=== PATIENT | female | born 1955 | race Two or more races ===

== ENCOUNTER 2025-08-08 17:45 | Inpatient (IN) | payer OTHER, MEDICAID ==
[~2025-08-08] VITALS: Ht 167.6 cm; Wt 81.0 kg
--- NOTE | 2025-08-08 18:04 | ECG ---
[facility] Test Date: 2025-08-08 Test Time: 17:58:12 Pat Name: LAVERN Riddlepartment: Room: 0248T Gender: F Photographic Artist: DAPHNE : 1955 Requested By: EMERGENCY EMERGENCY Order Number: [id number] Reading MD: Rubens Zarco Measurements Intervals [place] Rate: 93 P: 72 ND: 109 QRS: 58 QRSD: 125 T: -72 QT: 379 QTc: 472 Interpretive Statements Sinus rhythm Ventricular bigeminy Short ND interval Probable LVH with secondary repol abnrm ST depression, consider ischemia, diffuse lds Electronically Signed On 08-13-2025 19:10:51 PST by Rubens Zarco Please click the below link to view image of tracing.
--- NOTE | 2025-08-08 18:43 | ED.PDOC ---
History of Present Illness HPI Comments 70 y/o F presents with daughter for c/c of syncope. Significant history for arrhythmia, HLD, and HTN. Per daughter, patient was out shopping when she, suddenly, passed out and fell forward. Patient came to after a few minutes and, now, feels normals. She comments on feeling lightheaded prior to passing out and never having a history of similar events in the past. Denial of any further acute symptoms. Chief Complaint: Syncope Time Seen by MD: 18:30 Reviewed Notes: Nurses Notes, Medications, Allergies Allergies: Coded Allergies: NO KNOWN ALLERGIES (Unverified , 08/08/25) Information Source: Patient Mode of Arrival: Ambulatory Severity: Moderate Timing: Hours Duration: Minutes Prehospital treatment: None Past Medical History PAST MEDICAL HISTORY: High Lipids, HTN Past Medical History (Other): arrhythmia [employer] History: Denies all [employer] Hx Family History Family History: Unknown Social History Smoker: Non-Smoker Alcohol: Denies ETOH Use Drugs: Denies Drug Use Lives In: Assisted Care All Other Systems: Reviewed and Negative (Comprehensive review of systems are negative unless stated in HPI) Physical Exam General Appearance: No Apparent Distress, Normal HEENT: Normal ENT Inspection, Pharynx Normal, TMs Normal Neck: Full Range of Motion, Non-Tender, Normal, Normal Inspection Respiratory: Chest Non-Tender, Lungs Clear, No Accessory Muscle Use, No Respiratory Distress, Normal Breath Sounds Cardiovascular: Irregular, No Edema, No JVD, No Murmur, No Gallop, Normal Peripheral Pulses Breast Exam: Deferred Gastrointestinal: No Organomegaly, Non Tender, No Pulsatile Mass, Normal Bowel Sounds, Soft Genitalia: Deferred Pelvic: Deferred Rectal: Deferred Extremities: No calf tenderness, Normal capillary refill, Normal inspection, Normal range of motion, Non-tender, No pedal edema Musculoskeletal : Apperance: Normal Neurologic: Alert, applications architect II-XII nml as Tested, No Motor Deficits, Normal Affect, Normal Mood, No Sensory Deficits Cerebellar Function: Normal Reflexes: Normal Skin: Dry, Normal Color, Warm Lymphatic: No Adenopathy Was a procedure done? Was a procedure done?: No EKG EKG : Pulse Rate (adult): 93 [place]: Normal Cardiac Rhythm: NSR Block: None Hypertrophy: None ST: Normal Differential Dx Considerations may include: arrhythmia, hypotension, dehydration, electrolyte imbalance, intracranial hemorrhaging, aneurysm, CVA vs TIA, among others X-Ray, Labs, Meds, VS Vital Signs Date Time Temp Pulse Resp B/P (MAP) Pulse Ox O2 Delivery O2 Flow Rate FiO2 08/08/25 18:46 101 08/08/25 18:43 93 08/08/25 17:58 93 08/08/25 17:47 97.7 46 18 180/90 96 97.7 Lab Test 08/08/25 18:23 Range/Units White Blood Count 7.2 4.4-10.8 10^3/uL Red Blood Count 5.01 4.0-5.20 10^6/uL Hemoglobin 14.4 12.2-16.2 g/dL Hematocrit 42.5 36.0-46.0 % Mean Corpuscular Volume 84.8 80.0-100.0 fL Mean Corpuscular Hemoglobin 28.8 28.0-32.0 pg Mean Corpuscular Hemoglobin Concent 33.9 32.0-36.0 g/dL Red Cell Distribution Width 14.2 11.8-14.3 % Platelet Count 251 140-450 10^3/uL Mean Platelet Volume 9.0 6.9-10.8 fL Neutrophils (%) (Auto) 76.8 37.0-80.0 % Lymphocytes (%) (Auto) 14.9 10.0-50.0 % Monocytes (%) (Auto) 5.9 0.0-12.0 % Eosinophils (%) (Auto) 1.6 0.0-7.0 % Basophils (%) (Auto) 0.8 0.0-2.0 % Neutrophils # (Auto) 5.5 1.6-8.6 10 ^3/uL Lymphocytes # (Auto) 1.1 0.4-5.4 10 ^3/uL Monocytes # (Auto) 0.4 0-1.3 10 ^3/uL Eosinophils # (Auto) 0.1 0-0.8 10 ^3/uL Basophils # (Auto) 0.1 0-0.2 10 ^3/uL Nucleated Red Blood Cells 0.1 % Sodium Level 144 136-145 mmol/L Potassium Level 3.8 3.5-5.1 mmol/L Chloride Level 106 98-107 mmol/L Carbon Dioxide Level 26 20-31 mmol/L Anion Gap 12 5-15 Blood Urea Nitrogen 22 9-23 mg/dL Creatinine 0.79 0.550-1.02 mg/dL Glomerular Filtration Rate Calc 79 >90 mL/min BUN/Creatinine Ratio 27.8 H 10.0-20.0 Serum Glucose 105 74-106 mg/dL Lactic Acid Level 0.9 0.4-2.0 mmol/L Calcium Level 9.3 8.7-10.4 mg/dL Total Bilirubin 0.4 0.2-1.0 mg/dL Aspartate Amino Transferase (AST) 18 13-40 U/L Alanine Aminotransferase (ALT) 10 7-40 U/L Alkaline Phosphatase 111 46-116 U/L Troponin I High Sensitivity 11 </=34 ng/L B-Type Natriuretic Peptide 288.58 0-100 pg/mL Total Protein 7.5 5.7-8.2 g/dL Albumin 4.4 3.2-4.8 g/dL Time of 1ST Reevaluation: 19:00 Reevaluation 1ST: Unchanged Patient Education/Counseling: Diagnosis, Treatment Family Education/Counseling: Diagnosis, Treatment SEPSIS Sepsis Screen Date sepsis recognized/suspect: Aug 08, 2025 Time Sepsis recognized/suspect: 1748 Recent Procedure: No On Antibiotic Therapy: No Respiratory Rate >20: No Heart Rate >90: No Temp<36 C (96.8 F) or >38.3 C: No SBP <90 or MAP <65 mmHG: No New Acute Mental Status Change: No Is the patient on CPAP, BIPAP,: No Physician Orders Urinalysis (08/08/25 18:05) Chest Portable (08/08/25 18:05) Electrocardigram (08/08/25 18:05) Head Without Contrast (08/08/25 18:05) Blood Culture (08/08/25 18:05) Troponin-I Hs (08/08/25 19:05) Troponin-I Hs (08/08/25 21:05) Electrocardigram (08/08/25 19:05) Electrocardigram (08/08/25 21:05) Vital Signs Date Time Temp Pulse Resp B/P (MAP) Pulse Ox O2 Delivery O2 Flow Rate FiO2 08/08/25 18:46 101 08/08/25 18:43 93 08/08/25 17:58 93 08/08/25 17:47 97.7 46 18 180/90 96 97.7 Laboratory Tests Test 08/08/25 18:23 Lactic Acid Level 0.9 mmol/L (0.4-2.0) White Blood Count 7.2 10^3/uL (4.4-10.8) Departure 1 Departure Time of Disposition: 19:37 (Patient presented with syncope today and should be admitted. Data: 1. I ordered and reviewed the result of at least 3 labs including a CBC, BMP, and troponin. 2. I independently interpreted the following tests: EKG which shows a sinus arrhythmia and a chest x-ray which shows benign chest and a CT head which shows benign brain.Risk:This patient has a high risk of morbidity due to further diagnostic testing or treatment and may suffer from an acute cardiac, neurologic, or infectious disorder. Rationale: Patient should be admitted to the hospital for further management.) Impression: Primary Impression: Syncope and collapse Disposition: ADMITTED INPATIENT [facility] Condition: Guarded Critical Care Note Critical Care Time?: Yes Critical care comment: Syncope and collapse Authorized and Performed by: Alma Amos MD Total critical care time: Approximately 49 minutes Due to a high probability of clinically significant, life threatening deterioration, the patient required my highest level of preparedness to intervene emergently and I personally spent this critical care time directly and personally managing the patient. This critical care time included obtaining a history; examining the patient; pulse oximetry; ordering and review of studies; arranging urgent treatment with development of a management plan; evaluation of patient's response to treatment; frequent reassessment; and, discussions with other providers. This critical care time was performed to assess and manage the high probability of imminent, life-threatening deterioration that could result in multi-organ failure. It was exclusive of separately billable procedures and treating other patients and teaching time. Please see my other sections and the rest of the note for further information on patient assessment and treatment. Stability Stability form required: No Heart Score Heart Score: Heart Score Response (Comments) Value History N/A 0 EKG N/A 0 Age N/A 0 Risk Factors N/A 0 Troponin N/A 0 Total 0 I personally scribed for ALMA AMOS MD ([email or web address]) on 08/08/25 at 18:42. Electronically submitted by Aniket Dickinson ([email or web address]). ALMA AMOS MD Aug 08, 2025 18:42
[2025-08-08 18:50] LABS: Hematocrit 42.5 % (36.0-46.0); Hemoglobin 14.4 g/dL (12.2-16.2); Mean Corpuscular Hemoglobin 28.8 pg (28.0-32.0); Mean Corpuscular Volume 84.8 fL (80.0-100.0); Nucleated Red Blood Cells % 0.1 %
--- NOTE | 2025-08-08 19:07 | DVH ---
CHEST RADIOGRAPH Indication: syncope Technique: Single frontal view of the chest was obtained Comparison: None FINDINGS: Lines and Tubes: None Lungs: No focal consolidation. Pleura: No effusion. No pneumothorax. Cardiomediastinal contours: Unremarkable Bones: No acute osseous abnormality. IMPRESSION: 1. No acute cardiopulmonary disease.
[2025-08-08 19:08] LABS: Alanine Aminotransferase 10 U/L (7-40); Albumin 4.4 g/dL (3.2-4.8); Alkaline Phosphatase 111 U/L (46-116); Anion Gap 12 (5-15); BUN/Creatinine Ratio 27.8 (10.0-20.0); Bilirubin, Total 0.4 mg/dL (0.2-1.0); Blood Urea Nitrogen 22 mg/dL (9-23); Calcium 9.3 mg/dL (8.7-10.4); Carbon Dioxide 26 mmol/L (20-31); Chloride 106 mmol/L (98-107); Glucose 105 mg/dL (74-106); Potassium 3.8 mmol/L (3.5-5.1); Sodium 144 mmol/L (136-145); Total Protein 7.5 g/dL (5.7-8.2)
--- NOTE | 2025-08-08 19:11 | DVH ---
EXAM: CT HEAD WITHOUT CONTRAST INDICATION: syncope TECHNIQUE: CT of the head without intravenous contrast. Radiation Dose : 1. Head: CT Dose: CTDI volume is 51.22 mGy. Dose-length product is 932.81 mGy*cm The dose indicators for CT are the volume Computed Tomography (CT) Dose Index (CTDIvol) and the Dose Length Product (DLP), and are measured in units of mGy and mGy-cm, respectively. These indicators are not patient dose, but values generated from the CT scanner acquisition factors. The report includes radiation exposure data for exposures received during this examination. COMPARISON: None FINDINGS: Motion artifact degrades fine detail. No acute territorial infarct, intracranial hemorrhage, or mass effect. There are global involutional changes with compensatory prominence of the ventricles and sulci. Patchy periventricular and subcortical white matter hypoattenuation is nonspecific but may be related to small vessel ischemic disease. The orbits are normal. Trace fluid in the inferior right mastoid air cells. The paranasal sinuses and mastoid air cells are clear. The osseous structures are unremarkable. IMPRESSION: 1. No acute territorial infarct, intracranial hemorrhage, or mass effect. 2. Age-related involutional changes. Chronic microvascular changes. 3. If clinical symptoms persist, MRI may be beneficial in further evaluation. Radiation optimization: All CT scans at this facility use at least one of these dose optimization techniques: automated exposure control mA and/or kV adjustment per patient size (includes targeted exams where dose is matched to clinical indication) or iterative reconstruction.
[2025-08-09] VITALS (8 sets, daily range): BP systolic 142–198; BP diastolic 57–90; PULSE 48–91; RESP 17–18; TEMP 97.6–98.6; O2SAT 94–99
--- NOTE | 2025-08-09 00:07 | DVHHP2 ---
History of Present Illness Reason for Visit: Syncope and collapse History of Present Illness The patient is a 70-year-old female with past medical history of cardiac arrhythmia, hypertension, and hyperlipidemia who presented to [facility] ED for evaluation of syncopal episode. As reported by daughter, patient was out shopping when she suddenly passed out on the counter falling forward. Patient regained her consciousness after a few minutes, but unable to recall event. Patient reports feeling lightheaded prior to passing out and never having history of similar events in the past. Patient was seen and evaluated in the ED, laboratory data shows WBC 7.2, platelets 251, sodium 144, potassium 3.8, BUN 22, creatinine 0.79, GFR 79, glucose 105, calcium 9.3, troponin 11, blood pressure 152/98, pulse 78, temperature 97.6 F, O2 saturation 95% on room air. Head CT showed no acute territorial infarct, intracranial hemorrhage, or mass effect. Please see medication orders section in the computer. On my assessment, patient denied chest pain, no headache, dizziness, diaphoresis, shortness of breaths, no diarrhea, nausea, vomiting, fever, no chills. Patient was admitted for further evaluation and medical management. Past Medical History High Lipids, HTN, Arrhythmia Past Surgical History Denies all surgeries Family History Reviewed, noncontributory to the management of this case. Past Social History The patient lives at home, denies smoking, alcohol or illicit drugs abuse. Review of Systems Constitutional: Yes: Weakness; No: Fever, Chills, Sweats, Malaise, Other Eyes: No: Pain, Vision change, Conjunctivae inflammation, Eyelid inflammation, Other, Redness ENT: No: Ear pain, Ear discharge, Nose pain, Nose discharge, Nose congestion, Mouth pain, Mouth swelling, Throat pain, Throat swelling, Other Respiratory: No: Cough, Dry, Shortness of breath, SOB with excertion, Wheezing, Hemoptysis, Pleuritic Pain, Sputum, Wheezing, Other Cardiovascular: Other (Syncope); No: Chest Pain, Palpitations, Orthopnea, Paroxysmal Noc. Dyspnea, Edema, Lt Headedness Gastrointestinal: No: Nausea, Vomiting, Abdominal Pain, Diarrhea, Constipation, Melena, Hematochezia, Other Genitourinary: No Dysuria, No Frequency, No Incontinence, No Hematuria, No Retention, No Other Musculoskeletal: No: other, neck pain, shoulder pain, arm pain, back pain, hand pain, leg pain, foot pain Skin: No: Rash, Lesions, Jaundice, Bruising, Other Neurological: No: Weakness, Numbness, Incoordination, Change in speech, Confusion, Seizures, Other Allergies: Coded Allergies: NO KNOWN ALLERGIES (Unverified , 08/08/25) Exam Vital Signs Vital Signs Date Time Temp Pulse Resp B/P (MAP) Pulse Ox O2 Delivery O2 Flow Rate FiO2 08/08/25 22:30 97.6 79 16 153/98 (116) 95 97.6 General Appearance: Alert, Oriented X3, Cooperative, No acute distress HEENT: Atraumatic, PERRLA, EOMI, Mucous membr. moist/pink Respiratory: Clear to auscultation, Normal air movement Cardiovascular: Regular rate, Normal S1, Normal S2, No murmurs Abdominal: Normal bowel sounds, Soft, No tenderness, No hepatospenomegaly, No masses Extremities: No clubbing, No cyanosis, No edema, Normal pulses, No tenderness/swelling Skin: No rashes, No significant lesion Neuro: Normal speech, Normal tone, Sensation intact, Cranial nerves 3-12 NL, Reflexes 2+, Other (Generalized weakness) Psych/Mental Status: Mental status NL, Mood NL Labs/Xrays Labs Test 08/08/25 21:18 08/08/25 18:23 Range/Units Troponin I High Sensitivity 11 </=34 ng/L White Blood Count 7.2 4.4-10.8 10^3/uL Red Blood Count 5.01 4.0-5.20 10^6/uL Hemoglobin 14.4 12.2-16.2 g/dL Hematocrit 42.5 36.0-46.0 % Mean Corpuscular Volume 84.8 80.0-100.0 fL Mean Corpuscular Hemoglobin 28.8 28.0-32.0 pg Mean Corpuscular Hemoglobin Concent 33.9 32.0-36.0 g/dL Red Cell Distribution Width 14.2 11.8-14.3 % Platelet Count 251 140-450 10^3/uL Mean Platelet Volume 9.0 6.9-10.8 fL Neutrophils (%) (Auto) 76.8 37.0-80.0 % Lymphocytes (%) (Auto) 14.9 10.0-50.0 % Monocytes (%) (Auto) 5.9 0.0-12.0 % Eosinophils (%) (Auto) 1.6 0.0-7.0 % Basophils (%) (Auto) 0.8 0.0-2.0 % Neutrophils # (Auto) 5.5 1.6-8.6 10 ^3/uL Lymphocytes # (Auto) 1.1 0.4-5.4 10 ^3/uL Monocytes # (Auto) 0.4 0-1.3 10 ^3/uL Eosinophils # (Auto) 0.1 0-0.8 10 ^3/uL Basophils # (Auto) 0.1 0-0.2 10 ^3/uL Nucleated Red Blood Cells 0.1 % Sodium Level 144 136-145 mmol/L Potassium Level 3.8 3.5-5.1 mmol/L Chloride Level 106 98-107 mmol/L Carbon Dioxide Level 26 20-31 mmol/L Anion Gap 12 5-15 Blood Urea Nitrogen 22 9-23 mg/dL Creatinine 0.79 0.550-1.02 mg/dL Glomerular Filtration Rate Calc 79 >90 mL/min BUN/Creatinine Ratio 27.8 H 10.0-20.0 Serum Glucose 105 74-106 mg/dL Lactic Acid Level 0.9 0.4-2.0 mmol/L Calcium Level 9.3 8.7-10.4 mg/dL Total Bilirubin 0.4 0.2-1.0 mg/dL Aspartate Amino Transferase (AST) 18 13-40 U/L Alanine Aminotransferase (ALT) 10 7-40 U/L Alkaline Phosphatase 111 46-116 U/L B-Type Natriuretic Peptide 288.58 0-100 pg/mL Total Protein 7.5 5.7-8.2 g/dL Albumin 4.4 3.2-4.8 g/dL PATIENT: LAVERN SINGHACCT: [id number] UNIT: [id number] : 1955 LOC: ER ROOM / BED: / AGE / SEX: 70 / F ADM STATUS: REG ER SERVICE 0233 ORDERING PHYSICIAN: ALMA ROYAL MD PROCEDURE(s): HWOCT - HEAD WITHOUT CONTRAST REASON: syncope ORDER NUMBER(s): [id number], ACCESSION NUMBER(s): [id number] EXAM: CT HEAD WITHOUT CONTRAST INDICATION: syncope TECHNIQUE: CT of the head without intravenous contrast. Radiation Dose: 1. Head: CT Dose: CTDI volume is 51.22 mGy. Dose-length product is 932.81 mGy*cm The dose indicators for CT are the volume Computed Tomography (CT) Dose Index (CTDIvol) and the Dose Length Product (DLP), and are measured in units of mGy and mGy-cm, respectively. These indicators are not patient dose, but values generated from the CT scanner acquisition factors. The report includes radiation exposure data for exposures received during this examination. COMPARISON: None FINDINGS: Motion artifact degrades fine detail. No acute territorial infarct, intracranial hemorrhage, or mass effect. There are global involutional changes with compensatory prominence of the ventricles and sulci. Patchy periventricular and subcortical white matter hypoattenuation is nonspecific but may be related to small vessel ischemic disease. The orbits are normal. Trace fluid in the inferior right mastoid air cells. The paranasal sinuses and mastoid air cells are clear. The osseous structures are unremarkable. IMPRESSION: 1. No acute territorial infarct, intracranial hemorrhage, or mass effect. 2. Age-related involutional changes. Chronic microvascular changes. 3. If clinical symptoms persist, MRI may be beneficial in further evaluation. ORDERING PHYSICIAN: ALMA ROYAL MD PROCEDURE(s): CXRP - CHEST PORTABLE REASON: syncope ORDER NUMBER(s): [id number], ACCESSION NUMBER(s): [id number] CHEST RADIOGRAPH Indication: syncope Technique: Single frontal view of the chest was obtained Comparison: None FINDINGS: Lines and Tubes: None Lungs: No focal consolidation. Pleura: No effusion. No pneumothorax. Cardiomediastinal contours: Unremarkable Bones: No acute osseous abnormality. IMPRESSION: 1. No acute cardiopulmonary disease. SEPSIS Sepsis Screen Date sepsis recognized/suspect: Aug 08, 2025 Time Sepsis recognized/suspect: 1748 Recent Procedure: No On Antibiotic Therapy: No Respiratory Rate >20: No Heart Rate >90: No Temp<36 C (96.8 F) or >38.3 C: No SBP <90 or MAP <65 mmHG: No New Acute Mental Status Change: No Is the patient on CPAP, BIPAP,: No Physician Orders Urinalysis (08/08/25 18:05) Chest Portable (08/08/25 18:05) Electrocardigram (08/08/25 18:05) Head Without Contrast (08/08/25 18:05) Blood Culture (08/08/25 18:05) Electrocardigram (08/08/25 19:05) Electrocardigram (08/08/25 21:05) Complete Blood Count (08/09/25 04:00) Comprehensive Metabolic Panel (08/09/25 04:00) Aspirin Chewable Tablet (08/09/25 10:00) Atorvastatin (Lipitor) (08/09/25 22:00) Losartan Tablet (Cozaar Tablet) (08/09/25 10:00) Amlodipine Tablet (Norvasc Tablet) (08/09/25 10:00) Admit (08/09/25 00:02) Allergies (08/09/25 00:02) Code Status (08/09/25 00:02) 0.9% Ns 1000 Ml (08/09/25 00:15) Oxygen Per Hour (08/09/25 00:02) Hydrocodone-Acet 5/325mg Tab ([place] 5/32 (08/09/25 00:15) Ondansetron Hcl (Zofran) (08/09/25 00:15) Docusate Sodium Capsule (Colace Capsule) (08/09/25 00:15) Fall Risk Precautions In Place QSHIFT (08/09/25 00:02) Complete Blood Count (08/10/25 04:00) Comprehensive Metabolic Panel (08/10/25 04:00) Cardiac Diet-2gna,Lofat,Lochol (08/09/25 Breakfast) Condition: Serious (08/09/25 00:02) Acetaminophen Tablet (Tylenol Tablet) (08/09/25 00:15) Maintain Bed Rest (08/09/25 00:02) Sequential Compression Device (08/09/25 ) Nitroglycerin Sublingual (Ntrostat Subli (08/09/25 00:15) Morphine Sulfate Injection (08/09/25 00:15) Stat Ekg For Chest Pain (08/09/25 00:02) Notify Md Of Changes From Base (08/09/25 00:02) Lockstitch Zipper Setter For 24 Hours (08/09/25 00:02) Emergency Dysrhythmia Protocol (08/09/25 00:02) Rhythm Strips Once Every Shift (08/09/25 00:02) Oxygen By Nasal Cannula (08/09/25 00:02) Vital Signs Date Time Temp Pulse Resp B/P (MAP) Pulse Ox O2 Delivery O2 Flow Rate FiO2 08/08/25 22:30 97.6 79 16 153/98 (116) 95 97.6 08/08/25 20:52 92 08/08/25 18:46 101 08/08/25 18:43 93 08/08/25 17:58 93 08/08/25 17:47 97.7 46 18 180/90 96 97.7 Laboratory Tests Test 08/08/25 18:23 Lactic Acid Level 0.9 mmol/L (0.4-2.0) White Blood Count 7.2 10^3/uL (4.4-10.8) Assessment/Plan Assessment/Plan Syncope and collapse Generalized weakness Plan 1. Admit to telemetry unit 2. Breathing treatment 3. Pain control management 4. Management of fluids and electrolytes 5. Consultation for hospitalist 6. Diagnostic tests chest x-ray 7. DVT prophylaxis-on SCDs 8. Repeat labs CBC, CMP in a.m. 9. Continue with current medical management 10. Treatment plan discussed with patient/daughter and RN. Patient/daughter verbalized understanding. Plan discussed with: Patient, Other (RN) My Orders Orders - PATRICIA DARLING DNP Procedure Category Date Status Time Complete Blood Count LAB 08/09/25 Transmitted 04:00 Comprehensive LAB 08/09/25 Transmitted Metabolic Panel 04:00 Aspirin Chewable PHA 08/09/25 Transmitted Tablet 10:00 Atorvastatin (Lipitor) PHA 08/09/25 Transmitted 22:00 Losartan Tablet PHA 08/09/25 Transmitted (Cozaar Tablet) 10:00 Amlodipine Tablet PHA 08/09/25 Transmitted (Norvasc Tablet) 10:00 Admit ADMIT 08/09/25 Transmitted 00:02 Allergies DAVID 08/09/25 Transmitted 00:02 Code Status CODE 08/09/25 Transmitted 00:02 0.9% Ns 1000 Ml PHA 08/09/25 Transmitted 00:15 Oxygen Per Hour RT 08/09/25 Transmitted 00:02 Hydrocodone-Acet PHA 08/09/25 Transmitted 5/325mg Tab ([place] 00:15 Ondansetron Hcl PHA 08/09/25 Transmitted (Zofran) 00:15 Docusate Sodium PHA 08/09/25 Transmitted Capsule (Colace 00:15 Fall Risk Precautions [facility] 08/09/[address] 00:02 Complete Blood Count LAB 08/10/25 Verified 04:00 Comprehensive LAB 08/10/25 Verified Metabolic Panel 04:00 Cardiac DIET 08/09/25 Transmitted Diet-2gna,Lofat,Lochol Breakfast Condition: Serious [facility] 08/09/25 Verified 00:02 Acetaminophen Tablet [facility] 08/09/25 Verified (Tylenol Tablet) 00:15 Maintain Bed Rest [facility] 08/09/25 Verified 00:02 Sequential [facility] 08/09/25 Verified Compression Device Nitroglycerin [facility] 08/09/25 Verified Sublingual (Ntrostat 00:15 Morphine Sulfate [facility] 08/09/25 Verified Injection 00:15 Stat Ekg For Chest [facility] 08/09/25 Verified Pain 00:02 Notify Md Of Changes [facility] 08/09/25 Verified From Base 00:02 Lockstitch Zipper Setter For [facility] 08/09/25 Verified 24 Hours 00:02 Emergency Dysrhythmia [facility] 08/09/25 Verified Protocol 00:02 Rhythm Strips Once [facility] 08/09/25 Verified Every Shift 00:02 Oxygen By Nasal RT 08/09/25 Verified Cannula 00:02 Problem List: (1) Syncope and collapse (2) Generalized weakness Date of Service: Aug 09, 2025 Billing Provider: PATRICIA DARLING DNP Common Visit Codes: [id number] INP/OBS CARE (HIGH) PATRICIA DARLING DNP Aug 09, 2025 00:07
[2025-08-09] MEDS ORDERED: DOCUSATE SOD 100 MG CAP PO PRN (00:15)
[2025-08-09] MEDS ORDERED: NITROGLYCERIN 0.4 MG SL TAB SL PRN (00:15)
[2025-08-09] MEDS ORDERED: ACETAMINOPHEN 325 MG TAB PO PRN (00:15)
[2025-08-09] MEDS ORDERED: ONDANSETRON HCL 4 MG/2 ML VIAL IV PRN (00:15)
[2025-08-09] MEDS ORDERED: MORPHINE SULFATE INJ 2 MG/ml SYRG IV PRN (00:15)
[2025-08-09] MEDS ORDERED: HYDROcodone-ACET 5/325MG TAB PO PRN (00:15)
[2025-08-09] MEDS: SODIUM CHLORIDE 0.9% 1,000 ML IV SCH (01:40)
[2025-08-09 02:39] LABS: Hematocrit 41.6 % (36.0-46.0); Hemoglobin 13.8 g/dL (12.2-16.2); Mean Corpuscular Hemoglobin 28.2 pg (28.0-32.0); Mean Corpuscular Volume 85.3 fL (80.0-100.0); Nucleated Red Blood Cells % 0.1 %
[2025-08-09 02:55] LABS: Albumin 4.0 g/dL (3.2-4.8); Alkaline Phosphatase 100 U/L (46-116); Anion Gap 10 (5-15); BUN/Creatinine Ratio 29.3 (10.0-20.0); Bilirubin, Total 0.6 mg/dL (0.2-1.0); Blood Urea Nitrogen 17 mg/dL (9-23); Calcium 8.9 mg/dL (8.7-10.4); Carbon Dioxide 24 mmol/L (20-31); Glucose 102 mg/dL (74-106); Potassium 3.7 mmol/L (3.5-5.1); Sodium 142 mmol/L (136-145); Total Protein 6.9 g/dL (5.7-8.2)
[2025-08-09 02:56] LABS: Alanine Aminotransferase 9 U/L (7-40); Chloride 108 mmol/L (98-107)
[2025-08-09] MEDS ORDERED: ASPI-543 PO (05:00)
[2025-08-09] MEDS: LOSARTAN POTASSIUM 50 MG TAB PO SCH (10:45)
[2025-08-09] MEDS: ENOXAPARIN SOD 40 MG/0.4 ML SYRINGE SC SCH (10:46)
--- NOTE | 2025-08-09 12:40 | DVHSR ---
APPROVED REPORT EXAM: Two-dimensional and M-mode echocardiogram with Doppler and color Doppler. Blood Pressure: 160/71 mmHg INDICATION Syncope RISK FACTORS Height: 66, Weight: 176 DIMENSIONS LVDd 4.9 (3.8-5.7cm) LA (2D) 5.2 (1.9-4.0cm) Aortic Root 3.6 (2.0-3.7cm) LVDs 3.7 (2.5-4.0cm) LA (MM) (1.9-4.0cm) Aortic Cusp Exc 1.4 (1.5-2.0cm) EF (%) 50.0 (55-70%) Rt. Atrium 4.4 (1.9-4.0cm) Asc. Aorta cm Mitral Valve Mitral Mitral Stenosis A wave m/s MV Peak GR. 155mmHg E/A ratio 0.0 2D MVA cm2 Aortic Valve Aortic Valve Aortic Stenosis V1 0.82m/s AO Mean GR. 2mmHg V2 1.20m/s AO Peak GR. 6mmHg LVOT Diameter 2.1 (1.8-2.4cm) Doppler GABRIEL 2.37cm2 AI P 1/2 Time 417.41ms Pulmonic Valve V2 1.08m/s Tricuspid Valve TR Velocity 4.08m/s RVSP 83mmHg Other Information Technically limited study due to patients rhythm. Conclusion 1)Borderline low normal left ventricle systolic function with estimated ejection fraction of 50-55%. 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
[2025-08-09 13:17] LABS: Urine Protein, UAD 1+ (Negative)
[2025-08-09 14:16] LABS: INR 1.15 (0.9-1.15); Partial Thromboplastin Time 31.1 SEC (24.5-34.5); Prothrombin Time 12.0 sec (9.3-11.8)
--- NOTE | 2025-08-09 15:16 | DVHPNRES ---
Progress Note Date Seen: Aug 09, 2025 Resident Creating Document: BUBBA DEVINE RESDIENT Medical Necessity Reason Pt with a Central, PICC or Fol: No Subjective Review of Systems This is a 70-year-old lady with a past medical history of hypertension, dyslipidemia and unknown arrhythmia brought into the hospital due to syncope. Per patient, prior to losing consciousness she felt dizzy, had lost consciousness for couple of minutes, had no confusion upon waking up. She denies chest pain, shortness of breaths, sweating or palpitation. Home meds: Aspirin, patient was previously prescribed medicine for high blood pressure and dyslipidemia but the patient has stopped taking. She is taking her pills at home. On 08/09, the patient seen and examined at the bedside. Patient is feeling better and does not have any active complaint. Objective vital signs Vital Sign Date Time Temp Pulse Resp B/P (MAP) Pulse Ox O2 Delivery O2 Flow Rate FiO2 08/09/25 13:00 98.1 48 18 198/90 (126) 97 98.1 175/83 (113) 191/86 (121) 08/09/25 04:44 Room Air* 0 21 Total Intake and Output 08/08/25 08/08/25 08/09/25 15:00 23:00 07:00 Intake Total 0 ml Balance 0 ml medications Current Medications Medications Dose Ordered Sig/Patrick Route Start Time Stop Time Status Last Admin Dose Admin Aspirin 81 mg DAILY PO 08/09/25 10:00 08/09/25 10:44 81 MG Atorvastatin Calcium 20 mg HS PO 08/09/25 22:00 Losartan Potassium 50 mg DAILY PO 08/09/25 10:00 08/09/25 10:45 50 MG Amlodipine Besylate 5 mg DAILY PO 08/09/25 10:00 08/09/25 10:45 5 MG Sodium Chloride 1,000 ml @ 60 mls/hr [id number] IV 08/09/25 00:15 08/09/25 01:40 60 MLS/HR Acetaminophen/ Hydrocodone Bitart 1 tab Q4HP PRN PO 08/09/25 00:15 Ondansetron HCl 4 mg Q4HP PRN IV 08/09/25 00:15 Acetaminophen 650 mg Q6HP PRN PO 08/09/25 00:15 Enoxaparin Sodium 40 mg DAILY SC 08/09/25 10:00 08/09/25 10:46 40 MG Examination General Appearance: Alert, Oriented X3, Cooperative, No acute distress HEENT: Atraumatic, PERRLA, EOMI, Mucous membrane moist/pink Respiratory: Clear to auscultation, Normal air movement Cardiovascular: Regular rate, Normal S1, Normal S2, No murmurs, no chest wall tenderness Abdominal: Normal bowel sounds, Soft, No tenderness, No hepatospenomegaly, No masses Extremities: No clubbing, No cyanosis, No edema, Normal pulses, No tenderness/swelling Skin: No rashes, No breakdown, No significant lesion Neuro: Normal gait, Normal speech, Strength at 5/5 X4 ext, Normal tone, Sensation intact, Cranial nerves 3-12 NL, Reflexes 2+ Psych/Mental Status: Mental status NL, Mood NL laboratory and microbiology Laboratory Tests 08/09/25 02:26 Test 08/09/25 02:26 Range/Units Serum Glucose 102 74-106 mg/dL Labs and/or images reviewed: Labs reviewed by me, Image(s) reviewed by me Problem List/Assessment/Plan Problem List/Assessment/Plan Syncope, likely cardiogenic History of a dysrhythmia Hypertensive urgency Dyslipidemia Possible pulmonary hypertension * EKGs shows sinus bigeminal PVCs * Head CT scan showed no intracranial abnormalities * Echocardiogram shows LVEF 50-55%, septal wall dyssynchrony, and RVSP 65-70% suggestive of possible pulmonary hypertension Plan/recommendation: * Aspirin, atorvastatin, amlodipine and losartan * Consulted cardiology * Check echocardiogram * Consulted neurology DIET: Cardiolite DVT PROPHYLAXIS: Lovenox CODE STATUS: Goal of care discussed for more than 18 minutes, full code DISPOSITION: Telemetry Patient's status and plan discussed with the patient. Case discussed with Dr. Montes De Oca. Plan discussed with: Patient, Other My Orders My Orders Orders - BUBBA DEVINE RESDIENT Procedure Category Date Status Time Orthostatic Vital ORDERS 08/09/25 Transmitted Signs 08:13 Enoxaparin Sodium PHA 08/09/25 In Process (Lovenox) 10:00 * Cardiology Consult CONS 08/09/25 Transmitted 10:41 Echo 2d Mode Cardiac US 08/09/25 Resulted DOP 10:41 * Neurology Consult CONS 08/09/25 Transmitted 13:18 Visit Coding STANDARD RES Billing Provider: GEMA MONTES DE OCA DO Date of Service if different f: Aug 09, 2025 Common Visit Codes: [id number] INP/OBS CARE(HIGH) BUBBA DEVINE Aug 09, 2025 15:16 GEMA MONTES DE OCA DO Aug 10, 2025 20:51
--- NOTE | 2025-08-09 15:30 | DVHINCON2 ---
Date Seen: Aug 09, 2025 Referring Physician Timob Reason for Consultation Syncopy History of Present Illness 70-year-old female with PMH for HTN, HLD, mitral insufficiency with mitral valve prolapse moderate to/2019, emphysema/COPD, frequent PVCs previously scheduled for ablation though was not able to be performed at that time presents to the hospital with syncopal episode. Patient states was out shopping with her daughter when she suddenly had an episode of lightheadedness did not remember what happened HX of per daughter patient slumped over counter with her arms down respond to follow up with though her another bystander kept her stent ending by placing their arms underneath each of the patient's arms. Patient regained consciousness shortly after. Denies any palpitations chest pain shortness of breath. Per daughter initial blood pressure was over 200 systolic. Patient states that she was on blood pressure medications though wean herself off and was using herbal therapies remedies for BP control though has not been checking at home. Troponins negative x3. EKG reviewed and shows sinus rhythm at 93 beats per minute, ventricular bigeminy, LVH. Past Medical History As stated above Past Surgical History As stated above Allergies: Coded Allergies: NO KNOWN ALLERGIES (Unverified , 08/08/25) Home Meds Reported Medications Aspirin (Aspir-Low) 81 Mg Tab, 81 MG PO DAILY for 30 Days, MG 08/09/25 Current Medications Current Medications Medications (Trade) Dose Ordered Sig/Patrick Route PRN Reason Start Time Stop Time Status Last Admin Aspirin 81 mg DAILY PO 08/09/25 10:00 08/09/25 10:44 Atorvastatin Calcium (Lipitor) 20 mg HS PO 08/09/25 22:00 Losartan Potassium (Cozaar Tablet) 50 mg DAILY PO 08/09/25 10:00 08/09/25 10:45 Amlodipine Besylate (Norvasc Tablet) 5 mg DAILY PO 08/09/25 10:00 08/09/25 10:45 Sodium Chloride 1,000 ml @ 60 mls/hr [id number] IV 08/09/25 00:15 08/09/25 01:40 Acetaminophen/ Hydrocodone Bitart ([place] 5/325MG Tab) 1 tab Q4HP PRN PO MODERATE PAIN (4-6 PAIN SCALE) 08/09/25 00:15 Ondansetron HCl (Zofran) 4 mg Q4HP PRN IV NAUSEA / VOMITING 08/09/25 00:15 Docusate Sodium (Colace Capsule) 100 mg BIDPRN PRN PO FOR CONSTIPATION 08/09/25 00:15 08/09/25 08:13 DC Acetaminophen (Tylenol Tablet) 650 mg Q6HP PRN PO PAIN SCALE 1-3 OR TEMP>100.4 08/09/25 00:15 Nitroglycerin (Ntrostat Sublingual) 0.4 mg Q5MINP PRN SL FOR CHEST PAIN 08/09/25 00:15 08/09/25 08:13 DC Morphine Sulfate 2 mg Q30M PRN IV FOR CHEST PAIN 08/09/25 00:15 08/09/25 08:13 DC Enoxaparin Sodium (Lovenox) 40 mg DAILY SC 08/09/25 10:00 08/09/25 10:46 Review of Systems Constitutional: No: Fever, Chills, Sweats, Weakness, Malaise, Other Eyes: No: Pain, Vision change, Conjunctivae inflammation, Eyelid inflammation, Other, Redness ENT: No: Ear pain, Ear discharge, Nose pain, Nose discharge, Nose congestion, Mouth pain, Mouth swelling, Throat pain, Throat swelling, Other Respiratory: No: Cough, Dry, Shortness of breath, SOB with exertion, Wheezing, Hemoptysis, Pleuritic Pain, Sputum, Wheezing, Other Cardiovascular: ; No: Chest Pain Palpitations, Orthopnea, Paroxysmal Noc. Dyspnea, Edema, Lt Headedness, Other Gastrointestinal: No: Nausea, Vomiting, Abdominal Pain, Diarrhea, Constipation, Melena, Hematochezia, Other Genitourinary: No Dysuria, No Frequency, No Incontinence, No Hematuria, No Retention, No Other Musculoskeletal: neck pain; No: other, shoulder pain, arm pain, back pain, hand pain, leg pain, foot pain Skin: No: Rash, Lesions, Jaundice, Bruising, Other Neurological: Other (Dizziness, headache.); No: Weakness, Numbness, Incoordination, Change in speech, Confusion, Seizures Vital Signs Vital Signs Date Time Temp Pulse Resp B/P (MAP) Pulse Ox O2 Delivery O2 Flow Rate FiO2 08/09/25 13:00 98.1 48 18 198/90 (126) 97 98.1 175/83 (113) 191/86 (121) 08/09/25 04:44 Room Air* 0 21 Physical Exam General appearance: Patient is well-developed, well-nourished, in no acute distress. HEENT: Exam shows: Normocephalic, atraumatic, PERRLA, EOMI Neck: Supple, no bruits Chest: Equal chest excursion bilaterally. Breath sounds normal-no rales or wheezes. Heart: Rhythm: Regular rate; PVCs/bigeminy murmur Abdomen: Exam shows: Soft, nontender, nondistended Musculoskeletal: No clubbing, no cyanosis, no lower extremity edema Dermatology: Skin warm, moist. Neurological: Exam shows: Alert and oriented x4, normal speech Available prior records, labs, EKG, rhythm strips reviewed and interpreted Labs/Diagnostic Data Labs Test 08/09/25 13:39 08/09/25 12:33 08/09/25 02:26 08/08/25 21:18 Range/Units Prothrombin Time 12.0 H 9.3-11.8 sec Prothrombin Time INR 1.15 0.9-1.15 Activated Partial Thromboplast Time 31.1 24.5-34.5 SEC Urine Color Dark yellow Yellow Urine Clarity Turbid H Clear Urine pH 5.5 5.0-9.0 Urine Specific [place] 1.021 1.001-1.035 Urine Protein 1+ H Negative Urine Ketones 1+ H Negative Urine Blood 3+ H Negative /uL Urine Nitrite Negative Negative Urine Bilirubin Negative Negative Urine Urobilinogen Normal Negative mg/dL Urine Leukocyte Esterase Trace Negative /uL Urine RBC 596 0 - 4 /hpf Urine Microscopic WBC 17 H 0-5 /HPF Urine Squamous Epithelial Cells Few <5 /hpf Urine Bacteria None seen None Seen /hpf Urine Mucus Few None Seen Urine Glucose Normal Normal mg/dL White Blood Count 5.7 4.4-10.8 10^3/uL Red Blood Count 4.88 4.0-5.20 10^6/uL Hemoglobin 13.8 12.2-16.2 g/dL Hematocrit 41.6 36.0-46.0 % Mean Corpuscular Volume 85.3 80.0-100.0 fL Mean Corpuscular Hemoglobin 28.2 28.0-32.0 pg Mean Corpuscular Hemoglobin Concent 33.1 32.0-36.0 g/dL Red Cell Distribution Width 14.1 11.8-14.3 % Platelet Count 233 140-450 10^3/uL Mean Platelet Volume 9.0 6.9-10.8 fL Neutrophils (%) (Auto) 66.0 37.0-80.0 % Lymphocytes (%) (Auto) 23.1 10.0-50.0 % Monocytes (%) (Auto) 7.7 0.0-12.0 % Eosinophils (%) (Auto) 2.2 0.0-7.0 % Basophils (%) (Auto) 1.0 0.0-2.0 % Neutrophils # (Auto) 3.7 1.6-8.6 10 ^3/uL Lymphocytes # (Auto) 1.3 0.4-5.4 10 ^3/uL Monocytes # (Auto) 0.4 0-1.3 10 ^3/uL Eosinophils # (Auto) 0.1 0-0.8 10 ^3/uL Basophils # (Auto) 0.1 0-0.2 10 ^3/uL Nucleated Red Blood Cells 0.1 % Sodium Level 142 136-145 mmol/L Potassium Level 3.7 3.5-5.1 mmol/L Chloride Level 108 H 98-107 mmol/L Carbon Dioxide Level 24 20-31 mmol/L Anion Gap 10 5-15 Blood Urea Nitrogen 17 9-23 mg/dL Creatinine 0.58 0.550-1.02 mg/dL Glomerular Filtration Rate Calc 96 >90 mL/min BUN/Creatinine Ratio 29.3 H 10.0-20.0 Serum Glucose 102 74-106 mg/dL Calcium Level 8.9 8.7-10.4 mg/dL Magnesium Level 2.1 1.6-2.6 mg/dL Total Bilirubin 0.6 0.2-1.0 mg/dL Aspartate Amino Transferase (AST) 17 13-40 U/L Alanine Aminotransferase (ALT) 9 7-40 U/L Alkaline Phosphatase 100 46-116 U/L Total Protein 6.9 5.7-8.2 g/dL Albumin 4.0 3.2-4.8 g/dL Troponin I High Sensitivity 11 </=34 ng/L Test 08/08/25 18:23 Range/Units Lactic Acid Level 0.9 0.4-2.0 mmol/L B-Type Natriuretic Peptide 288.58 0-100 pg/mL Assessment * Syncope - Ortho VS negative. Likely in setting of Hypertensive Urgency. CT head negative. Continue tele monitoring. ECHO with EF 50-55%, Neurology on board. * Hx PVC burden, Bigeminy - continue telemetry monitoring, resume metoprolol. Patient previously being worked up with Dr. Kirkpatrick at [place] for PVC ablation. Continue outpatient follow up. * Hypertensive urgency - likely in setting of medication noncompliance as patient was doing herbal remedies for BP control. Stop taking medication for a couple of years. Resume BP meds, titrate as tolerated. * Hx MVR/MVP - mild MR on echo. * Pulmonary HTN - ECHO with RVSP 65-70 mmHg. Outpatient sleep study. Case Discussed with Dr Ellis. Continue with BP control. Resume previous BP m edications. Continue with outpatient EP follow up for possible PVC ablation. Normal EF on ECHO. Critical care, time spent: 45 minutes This medical document was created using an electronic medical record system with voice recognition software and computerized dictation system. Although this document has been carefully reviewed, there might still be some phonetic and typographical errors. Occasional wrong-word or ``sound-alike substitutions may have occurred due to the inherent limitations of voice recognition software. These areas are purely typographical due to imperfections of the software programs and do not reflect any compromise in the patient's medical care. Please read the chart carefully and recognize, using context, where these substitutions have occurred. Thank you for allowing me to participate in the management of this patient. The treatment plan was discussed with and agreed upon by patient/family including requesting consultants and ordering of imaging/procedures. Plan discussed with: Patient, Daughter NYHA Physical activity limitations: NA Date of Service: Aug 09, 2025 Billing Provider: DORIE SHAH Cardiology Common Codes: [id number] CARE 30-74 MIN DORIE SHAH Aug 09, 2025 15:30
[2025-08-09] MEDS: METOPROLOL SUCCINATE XL 50 MG TAB PO ONE (16:25)
--- NOTE | 2025-08-09 17:15 | DVH ---
EXAMINATION: MRI BRAIN HEAD WO CONTRAST INDICATION: syncope COMPARISON: CT HEAD WITHOUT CONTRAST on DOS: 08/08/25 TECHNIQUE: Multiplanar, multisequence magnetic resonance imaging of the brain was performed without the use of intravenous contrast. FINDINGS: No evidence of acute or remote infarct. No intracranial hemorrhage. No mass effect. 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 There are mild global involutional changes with commensurate prominence of the ventricles and sulci. Flow voids in the major intracranial vessels are maintained. No abnormality of the orbits. Paranasal sinuses and mastoid air cells are clear. No abnormality of the visualized osseous structures and extracranial soft tissues. IMPRESSION: 1. No acute infarct, intracranial hemorrhage or mass effect. 2. Age-related involutional changes.
--- NOTE | 2025-08-09 19:43 | DVHINCON2 ---
Date of service: Aug 09, [address] Izquierdo Reason for Consultation Syncope History of Present Illness Ms. Kai Yeboah is a not sure left-handed female with a history of hypertension, dyslipidemia, arrhythmia, cervical cancer, he was admitted to the [facility] on 08/08[facility]2025 with a chief complaint of syncopal event. At this time, she is alert and fully oriented, she provided the following history When she is standing at a store with her daughter, she had a feeling of discomfort in the head, but the next memory was waking up standing with clear sensorium, her daughter was holding her arm, asking what happened to her. She was told that he is falling forward, but she did not fall because her daughter was holding her up, and she was nonresponsiveness for 1-2 minutes. He reports there was no dizziness, headache, chest pain or other discomfort during this event, she had never had similar problem before, he denies recent dehydration or other acute illness Since 05/2023, she has intermittent nonprogressive tremors in both upper extremities with a left-sided more affected, she is not aware, but I see mild no-no neck shaking and mild tremor in the jaw. This no family history of tremors Urinalysis, 08/09/2025: WBC: 17, urine leukocyte esterase: Trace CBC, 08/09/2025: Unremarkable BMP 08/09/2025: Fine Liver function tests, 08/09/2025: Normal CT head, 08/08/2025: 1. No acute territorial infarct, intracranial hemorrhage, or mass effect. 2. Age-related involutional changes. Chronic microvascular changes. 3. If clinical symptoms persist, MRI may be beneficial in further evaluation MRI head, 08/09/2025: 1. No acute infarct, intracranial hemorrhage or mass effect. 2. Age-related involutional changes. Past Medical History Hypertension, dyslipidemia, arrhythmia, cervical cancer Past Surgical History Partial hysterectomy, right knee replacement Family History Hypertension, heart attack Social History She has no history of tobacco smoke, drug or alcohol abuse Allergies: Coded Allergies: NO KNOWN ALLERGIES (Unverified , 08/08/25) Home Meds Reported Medications Aspirin (Aspir-Low) 81 Mg Tab, 81 MG PO DAILY for 30 Days, MG 08/09/25 Current Medications Current Medications Medications (Trade) Dose Ordered Sig/Patrick Route PRN Reason Start Time Stop Time Status Last Admin Aspirin 81 mg DAILY PO 08/09/25 10:00 08/09/25 10:44 Atorvastatin Calcium (Lipitor) 20 mg HS PO 08/09/25 22:00 Losartan Potassium (Cozaar Tablet) 50 mg DAILY PO 08/09/25 10:00 08/09/25 10:45 Amlodipine Besylate (Norvasc Tablet) 5 mg DAILY PO 08/09/25 10:00 08/09/25 10:45 Sodium Chloride 1,000 ml @ 60 mls/hr [id number] IV 08/09/25 00:15 08/09/25 01:40 Acetaminophen/ Hydrocodone Bitart ([place] 5/325MG Tab) 1 tab Q4HP PRN PO MODERATE PAIN (4-6 PAIN SCALE) 08/09/25 00:15 Ondansetron HCl (Zofran) 4 mg Q4HP PRN IV NAUSEA / VOMITING 08/09/25 00:15 Docusate Sodium (Colace Capsule) 100 mg BIDPRN PRN PO FOR CONSTIPATION 08/09/25 00:15 08/09/25 08:13 DC Acetaminophen (Tylenol Tablet) 650 mg Q6HP PRN PO PAIN SCALE 1-3 OR TEMP>100.4 08/09/25 00:15 Nitroglycerin (Ntrostat Sublingual) 0.4 mg Q5MINP PRN SL FOR CHEST PAIN 08/09/25 00:15 08/09/25 08:13 DC Morphine Sulfate 2 mg Q30M PRN IV FOR CHEST PAIN 08/09/25 00:15 08/09/25 08:13 DC Enoxaparin Sodium (Lovenox) 40 mg DAILY SC 08/09/25 10:00 08/09/25 10:46 Metoprolol Succinate (Toprol Xl) 25 mg DAILY PO 08/10/25 10:00 Review of Systems As above, the other systems are negative Vital Signs Vital Signs Date Time Temp Pulse Resp B/P (MAP) Pulse Ox O2 Delivery O2 Flow Rate FiO2 08/09/25 17:00 97.6 91 17 142/73 (96) 94 97.6 08/09/25 08:00 Room Air* 0 21 Physical Exam GENERAL EXAM: General: the patient is well developed and nourished. No acute distress. HEENT: Normocephalic, neck is supple, no carotid bruits. No mass RESPIRATORY: Normal respiratory effort with symmetrical lung expansion. Lungs clear to auscultation. CARDIOVASCULAR: Regular rate and rhythm with no murmurs. S1, S2. ABDOMEN: Soft, nontender, normal bowel sound NEUROLOGICAL: MENTAL STATUS: Awake and alert. Oriented to person, place, time and general circumstances. Able to give personal history. SPEECH, LANGUAGE, HIGHER CORTICAL FUNCTION: no aphasia or dysathria. CRANIAL NERVES: #2: Intact visual morales to confrontation. The optic discs were sharp. #3,4,6: Pupils are equal, round and reactive. EOMs full and conjugate. No nystagmus. #5: Facial sensation intact in all three divisions bilaterally. Mandibular strength intact. #7: Facial muscles symmetrical and strength intact. #8: Hearing grossly normal to voice. #9,10: Uvula and soft palate rise in the midline. Swallow and voice are normal. #11: Trapezius and sternomastoid strength intact bilaterally. #12: Tongue midline. No fasciculations or atrophy. SENSATION: Sensation to touch and pinprick is normal. MOTOR: Normal tone in the upper and lower extremity. Normal muscle bulk. No fasciculations. Mild jaw tremor and no-no head tremor noticed, no definite tremor in the hands. Muscle strength of the major groups in the upper extremities is 5/5. Muscle strength of the major groups in the lower extremities is 5/5. REFLEXES: Deep tendon reflexes normal and symmetrical. No pathological reflexes. CEREBELLAR/COORDINATION: Finger to nose and heel to nieves are normal bilaterally. GAIT/STATION: deferred. Labs/Diagnostic Data Labs Test 08/09/25 13:39 08/09/25 12:33 08/09/25 02:26 08/08/25 21:18 Range/Units Prothrombin Time 12.0 H 9.3-11.8 sec Prothrombin Time INR 1.15 0.9-1.15 Activated Partial Thromboplast Time 31.1 24.5-34.5 SEC Urine Color Dark yellow Yellow Urine Clarity Turbid H Clear Urine pH 5.5 5.0-9.0 Urine Specific [place] 1.021 1.001-1.035 Urine Protein 1+ H Negative Urine Ketones 1+ H Negative Urine Blood 3+ H Negative /uL Urine Nitrite Negative Negative Urine Bilirubin Negative Negative Urine Urobilinogen Normal Negative mg/dL Urine Leukocyte Esterase Trace Negative /uL Urine RBC 596 0 - 4 /hpf Urine Microscopic WBC 17 H 0-5 /HPF Urine Squamous Epithelial Cells Few <5 /hpf Urine Bacteria None seen None Seen /hpf Urine Mucus Few None Seen Urine Glucose Normal Normal mg/dL White Blood Count 5.7 4.4-10.8 10^3/uL Red Blood Count 4.88 4.0-5.20 10^6/uL Hemoglobin 13.8 12.2-16.2 g/dL Hematocrit 41.6 36.0-46.0 % Mean Corpuscular Volume 85.3 80.0-100.0 fL Mean Corpuscular Hemoglobin 28.2 28.0-32.0 pg Mean Corpuscular Hemoglobin Concent 33.1 32.0-36.0 g/dL Red Cell Distribution Width 14.1 11.8-14.3 % Platelet Count 233 140-450 10^3/uL Mean Platelet Volume 9.0 6.9-10.8 fL Neutrophils (%) (Auto) 66.0 37.0-80.0 % Lymphocytes (%) (Auto) 23.1 10.0-50.0 % Monocytes (%) (Auto) 7.7 0.0-12.0 % Eosinophils (%) (Auto) 2.2 0.0-7.0 % Basophils (%) (Auto) 1.0 0.0-2.0 % Neutrophils # (Auto) 3.7 1.6-8.6 10 ^3/uL Lymphocytes # (Auto) 1.3 0.4-5.4 10 ^3/uL Monocytes # (Auto) 0.4 0-1.3 10 ^3/uL Eosinophils # (Auto) 0.1 0-0.8 10 ^3/uL Basophils # (Auto) 0.1 0-0.2 10 ^3/uL Nucleated Red Blood Cells 0.1 % Sodium Level 142 136-145 mmol/L Potassium Level 3.7 3.5-5.1 mmol/L Chloride Level 108 H 98-107 mmol/L Carbon Dioxide Level 24 20-31 mmol/L Anion Gap 10 5-15 Blood Urea Nitrogen 17 9-23 mg/dL Creatinine 0.58 0.550-1.02 mg/dL Glomerular Filtration Rate Calc 96 >90 mL/min BUN/Creatinine Ratio 29.3 H 10.0-20.0 Serum Glucose 102 74-106 mg/dL Calcium Level 8.9 8.7-10.4 mg/dL Magnesium Level 2.1 1.6-2.6 mg/dL Total Bilirubin 0.6 0.2-1.0 mg/dL Aspartate Amino Transferase (AST) 17 13-40 U/L Alanine Aminotransferase (ALT) 9 7-40 U/L Alkaline Phosphatase 100 46-116 U/L Total Protein 6.9 5.7-8.2 g/dL Albumin 4.0 3.2-4.8 g/dL Troponin I High Sensitivity 11 </=34 ng/L Test 08/08/25 18:23 Range/Units Lactic Acid Level 0.9 0.4-2.0 mmol/L B-Type Natriuretic Peptide 288.58 0-100 pg/mL Microbiology Date/Time Source Procedure Growth Status 08/08/25 18:31 Blood Blood Culture - Preliminary NO GROWTH AFTER 24 HOURS OF INCUBATION. Resulted Assessment Passing out ? Syncope ? Partial complex seizure Arrhythmia Essential tremors Plan/Recommendation Monitoring Supportive treatment Telemetry EEG Syncopal precautions discussed Good hydration No treatment indicated for the essential tremors Cardiology consultation More recommendation per clinical course Prognosis: Poor This medical document was created using an electronic medical record system with [employer] computerized dictation system. Although this document has been carefully reviewed, there may still be some phonetic and typographical errors. These areas are purely typographical due to imperfections of the software programs, and do not reflect any compromise in the patient's medical care. Plan discussed with: Patient, Other RUBI HERNANDEZ MD Aug 09, 2025 19:43
[2025-08-09] MEDS: ATORVASTATIN 20 MG TAB PO SCH (22:09)
[2025-08-10] VITALS (9 sets, daily range): BP systolic 0–152; BP diastolic 70–90; PULSE 51–95; RESP 15–18; TEMP 97.9–98.6; O2SAT 93–99
--- NOTE | 2025-08-10 06:41 | ECG ---
[facility] Test Date: 2025-08-08 Test Time: 18:46:21 Pat Name: LAVERN Riddlepartment: Room: 0248T B Gender: F Child Psychometrist: DAPHNE : 1955 Requested By: ALMA ROYAL Order Number: [id number] Reading MD: Rubens Zarco Measurements Intervals [place] Rate: 101 P: 47 DC: 128 QRS: 49 QRSD: 126 T: 237 QT: 406 QTc: 527 Interpretive Statements Sinus tachycardia Paired ventricular premature complexes LVH with IVCD and secondary repol abnrm ST depr, consider ischemia, inferior leads Electronically Signed On 08-13-2025 19:11:06 PST by Rubens Zarco Please click the below link to view image of tracing.
[2025-08-10 06:44] LABS: Hematocrit 38.7 % (36.0-46.0); Hemoglobin 13.0 g/dL (12.2-16.2); Mean Corpuscular Hemoglobin 28.6 pg (28.0-32.0); Mean Corpuscular Volume 85.2 fL (80.0-100.0); Nucleated Red Blood Cells % 0.1 %
[2025-08-10 06:55] LABS: Alkaline Phosphatase 91 U/L (46-116); Anion Gap 8 (5-15); BUN/Creatinine Ratio 27.8 (10.0-20.0); Blood Urea Nitrogen 15 mg/dL (9-23); Calcium 8.7 mg/dL (8.7-10.4); Carbon Dioxide 25 mmol/L (20-31); Glucose 85 mg/dL (74-106); Potassium 3.6 mmol/L (3.5-5.1); Sodium 143 mmol/L (136-145); Total Protein 6.3 g/dL (5.7-8.2)
[2025-08-10 06:56] LABS: Albumin 3.7 g/dL (3.2-4.8); Bilirubin, Total 0.7 mg/dL (0.2-1.0)
[2025-08-10 07:10] LABS: Alanine Aminotransferase 9 U/L (7-40); Chloride 110 mmol/L (98-107)
[2025-08-10] MEDS: METOPROLOL SUCCINATE XL 50 MG TAB PO SCH (09:11)
--- NOTE | 2025-08-10 09:17 | ECG ---
[facility] Test Date: 2025-08-08 Test Time: 20:52:40 Pat Name: LAVERN Riddlepartment: Room: 0248T B Gender: F Line Cook: WALTER : 1955 Requested By: ALMA ROYAL Order Number: [id number] Reading MD: Rubens Zarco Measurements Intervals [place] Rate: 92 P: 48 MT: 133 QRS: 60 QRSD: 167 T: -64 QT: 406 QTc: 503 Interpretive Statements Sinus rhythm Paired ventricular premature complexes LVH with IVCD and secondary repol abnrm Electronically Signed On 08-13-2025 19:12:15 PST by Rubens Zarco Please click the below link to view image of tracing.
--- NOTE | 2025-08-10 13:59 | DVHPNRES ---
Progress Note Date Seen: Aug 10, 2025 Resident Creating Document: BUBBA DEVINE RESDIENT Medical Necessity Reason Pt with a Central, PICC or Fol: No Subjective Review of Systems Patient seen and examined at the bedside. Patient is feeling better since admission. She does not have any active complaint. Objective vital signs Vital Sign Date Time Temp Pulse Resp B/P (MAP) Pulse Ox O2 Delivery O2 Flow Rate FiO2 08/10/25 13:00 98.1 79 15 149/80 (103) 97 98.1 08/10/25 07:55 Room Air* 0 21 Total Intake and Output 08/09/25 08/09/25 08/10/25 15:00 23:00 07:00 Intake Total 1100 ml 400 ml Balance 1100 ml 400 ml medications Current Medications Medications Dose Ordered Sig/Patrick Route Start Time Stop Time Status Last Admin Dose Admin Aspirin 81 mg DAILY PO 08/09/25 10:00 08/10/25 09:11 81 MG Atorvastatin Calcium 20 mg HS PO 08/09/25 22:00 08/09/25 22:09 20 MG Losartan Potassium 50 mg DAILY PO 08/09/25 10:00 08/10/25 09:11 50 MG Amlodipine Besylate 5 mg DAILY PO 08/09/25 10:00 08/10/25 09:11 5 MG Sodium Chloride 1,000 ml @ 60 mls/hr [id number] IV 08/09/25 00:15 08/09/25 01:40 60 MLS/HR Acetaminophen/ Hydrocodone Bitart 1 tab Q4HP PRN PO 08/09/25 00:15 Ondansetron HCl 4 mg Q4HP PRN IV 08/09/25 00:15 Acetaminophen 650 mg Q6HP PRN PO 08/09/25 00:15 Enoxaparin Sodium 40 mg DAILY SC 08/09/25 10:00 08/10/25 09:11 40 MG Metoprolol Succinate 25 mg DAILY PO 08/10/25 10:00 08/10/25 09:11 25 MG Examination General Appearance: Alert, Oriented X3, Cooperative, No acute distress HEENT: Atraumatic, PERRLA, EOMI, Mucous membrane moist/pink Respiratory: Clear to auscultation, Normal air movement Cardiovascular: Regular rate, Normal S1, Normal S2, No murmurs, no chest wall tenderness Abdominal: Normal bowel sounds, Soft, No tenderness, No hepatospenomegaly, No masses Extremities: No clubbing, No cyanosis, No edema, Normal pulses, No tenderness/swelling Skin: No rashes, No breakdown, No significant lesion Neuro: Normal gait, Normal speech, Strength at 5/5 X4 ext, Normal tone, Sensation intact, Cranial nerves 3-12 NL, Reflexes 2+ Psych/Mental Status: Mental status NL, Mood NL laboratory and microbiology Laboratory Tests 08/10/25 06:00 Test 08/10/25 06:00 Range/Units Serum Glucose 85 74-106 mg/dL Microbiology Date/Time Source Procedure Growth Status 08/08/25 18:31 Blood Blood Culture - Preliminary NO GROWTH AFTER 24 HOURS OF INCUBATION. Resulted Labs and/or images reviewed: Labs reviewed by me, Image(s) reviewed by me Problem List/Assessment/Plan Problem List/Assessment/Plan Syncope, likely cardiogenic History of a dysrhythmia Hypertensive urgency Dyslipidemia Possible pulmonary hypertension * EKGs shows sinus bigeminal PVCs * Head CT scan showed no intracranial abnormalities * Echocardiogram shows LVEF 50-55%, septal wall dyssynchrony, and RVSP 65-70% suggestive of possible pulmonary hypertension Plan/recommendation: * Aspirin, atorvastatin, amlodipine and losartan * Consulted cardiology, consulted outpatient follow up on medical management at the moment * Consulted neurology, recommended MRI and EEG DIET: Cardiolite DVT PROPHYLAXIS: Lovenox CODE STATUS: Goal of care discussed for more than 18 minutes, full code DISPOSITION: Telemetry Patient's status and plan discussed with the patient. Case discussed with Dr. Soliman. Plan discussed with: Patient, Daughter, Other (RN) Visit Coding STANDARD RES Billing Provider: LINDA DIAZ MD Date of Service if different f: Aug 10, 2025 Common Visit Codes: 88182-SHBPVMFHPS INP/OBS CARE(HIGH) BUBBA DEVINE RESDIENT Aug 10, 2025 13:59
--- NOTE | 2025-08-10 20:27 | DVHPN2 ---
Progress Note - Dictate Date Seen: Aug 10, 2025 Medical Necessity Reason Pt with a Central, PICC or Fol: No Subjective Ms. Kai Yeboah is a not sure left-handed female with a history of hypertension, dyslipidemia, arrhythmia, cervical cancer, he was admitted to the [facility] on 08/08/2025 with a chief complaint of syncopal event. I have seen and examined the patient, talked to her nurse, she is doing fine, alert and fully oriented, no new complaints The patient is recommended to follow up with her [facility] [address] for her PVC ablation Urinalysis, 08/09/2025: WBC: 17, urine leukocyte esterase: Trace CBC, 08/09/2025: Unremarkable BMP 08/09/2025: Fine Liver function tests, 08/09/2025: Normal CT head, 08/08/2025: 1. No acute territorial infarct, intracranial hemorrhage, or mass effect. 2. Age-related involutional changes. Chronic microvascular changes. 3. If clinical symptoms persist, MRI may be beneficial in further evaluation MRI head, 08/09/2025: 1. No acute infarct, intracranial hemorrhage or mass effect. 2. Age-related involutional changes. vital signs Vital Sign Date Time Temp Pulse Resp B/P (MAP) Pulse Ox O2 Delivery O2 Flow Rate FiO2 08/10/25 20:00 51 18 94 Room Air* 0 21 08/10/25 17:00 98.1 152/83 (106) 98.1 Total Intake and Output 08/09/25 08/09/25 08/10/25 15:00 23:00 07:00 Intake Total 1100 ml 400 ml Balance 1100 ml 400 ml medications Current Medications Medications Dose Ordered Sig/Patrick Route Start Time Stop Time Status Last Admin Dose Admin Aspirin 81 mg DAILY PO 08/09/25 10:00 08/10/25 09:11 81 MG Atorvastatin Calcium 20 mg HS PO 08/09/25 22:00 08/09/25 22:09 20 MG Losartan Potassium 50 mg DAILY PO 08/09/25 10:00 08/10/25 09:11 50 MG Amlodipine Besylate 5 mg DAILY PO 08/09/25 10:00 08/10/25 09:11 5 MG Sodium Chloride 1,000 ml @ 60 mls/hr [id number] IV 08/09/25 00:15 08/09/25 01:40 60 MLS/HR Acetaminophen/ Hydrocodone Bitart 1 tab Q4HP PRN PO 08/09/25 00:15 Ondansetron HCl 4 mg Q4HP PRN IV 08/09/25 00:15 Acetaminophen 650 mg Q6HP PRN PO 08/09/25 00:15 Enoxaparin Sodium 40 mg DAILY SC 08/09/25 10:00 08/10/25 09:11 40 MG Metoprolol Succinate 25 mg DAILY PO 08/10/25 10:00 08/10/25 09:11 25 MG objective General: the patient is well developed and nourished. No acute distress. MENTAL STATUS: Subjective SPEECH, LANGUAGE, HIGHER CORTICAL FUNCTION: no aphasia or dysathria. CRANIAL NERVES: Pupils are equal, round and reactive. EOMs full and conjugate. No nystagmus. Facial sensation intact in all three divisions bilaterally. Mandibular strength intact. Facial muscles symmetrical and strength intact. SENSATION: Sensation to touch and pinprick is normal. MOTOR: Normal tone in the upper and lower extremity. Normal muscle bulk. No fasciculations. Mild jaw tremor and no-no head tremor noticed, no definite tremor in the hands. Muscle strength of the major groups in the extremities is 5/5. REFLEXES: Deep tendon reflexes normal and symmetrical. No pathological reflexes. CEREBELLAR/COORDINATION: Finger to nose and heel to nieves are normal bilaterally. GAIT/STATION: deferred laboratory and microbiology Laboratory Tests 08/10/25 06:00 Test 08/10/25 06:00 Range/Units Serum Glucose 85 74-106 mg/dL Problem List Passing out ? Syncope ? Partial complex seizure Arrhythmia Essential tremors Assessment/Plan Monitoring Supportive treatment Telemetry EEG Syncopal precautions discussed Good hydration No treatment indicated for the essential tremors Cardiology on case More recommendation per clinical course This medical document was created using an electronic medical record system with [employer] dictation system. Although this document has been carefully reviewed, there may still be some phonetic and typographical errors. These areas are purely typographical due to imperfections of the software programs, and do not reflect any compromise in the patient's medical care. Prognosis poor Plan discussed with: Patient, Other Total Time (mins): 35 RUBI HERNANDEZ MD Aug 10, 2025 20:27
--- NOTE | 2025-08-11 00:20 | DVHEEG2 ---
Neurology EEG Procedural Note Procedural Note EXAM DATE: 08/10/25 REFERRING DOCTOR: Dr. Hernandez TECHNIQUE: Eighteen channels of EEG, 2 channels of EOG, and 1 channel of EKG were recorded using the International 10/20 system. CLINICAL DATA: The patient was referred for an EEG evaluation for the evidence of seizure disorder. MEDICATIONS: See chart BACKGROUND ACTIVITY: While the patient was awake, the background activity consisted of well regulated 12Hz rhythmic waveforms, symmetrically distributed over both posterior quadrants and was reactive to eye opening. ACTIVATION: Hyperventilation: Not done Photic Stimulation: No photic convulsive response Sleep: Noticed IMPRESSION: This is a normal EEG. No focal, lateralized, or epileptiform features are noted. If clinically indicated to rule out a seizure disorder, recommend repeat EEG with sleep deprivation. The EKG channel showed a regular heart rate of 74/min [place] [address] RUBI HERNANDEZ MD Aug 11, 2025 00:20
[2025-08-11 01:00] VITALS: BP 107/72; PULSE 67; RESP 16; TEMP 98; O2SAT 93
[2025-08-11 05:00] VITALS: BP 144/79; PULSE 79; RESP 16; TEMP 97.8; O2SAT 95
[2025-08-11 06:45] LABS: Potassium 3.8 mmol/L (3.5-5.1); Sodium 143 mmol/L (136-145)
[2025-08-11 06:46] LABS: Anion Gap 9 (5-15); Calcium 8.8 mg/dL (8.7-10.4); Carbon Dioxide 27 mmol/L (20-31)
[2025-08-11 06:49] LABS: Chloride 107 mmol/L (98-107)
[2025-08-11 06:51] LABS: BUN/Creatinine Ratio 24.5 (10.0-20.0); Blood Urea Nitrogen 13 mg/dL (9-23); Glucose 82 mg/dL (74-106)
[2025-08-11 09:08] VITALS: BP 137/65; PULSE 71; RESP 17; TEMP 97.9; O2SAT 98
--- NOTE | 2025-08-11 10:39 | DVHPN2 ---
Progress Note - Dictate Date Seen: Aug 11, 2025 Medical Necessity Reason Pt with a Central, PICC or Fol: No Subjective Ms. Kai Yeboah is a not sure left-handed female with a history of hypertension, dyslipidemia, arrhythmia, cervical cancer, he was admitted to the [facility] on 08/08[facility]2025 with a chief complaint of syncopal event. I have seen and examined the patient, talked to her nurse, she is doing fine, alert and fully oriented, no new complaints She reports that she had nausea, vomiting, bad diarrhea a few days prior to the passing out event, the symptoms were especially worse since the day prior but she was still able to drink and eat. Urinalysis, 08/09/2025: WBC: 17, urine leukocyte esterase: Trace CBC, 08/09/2025: Unremarkable BMP 08/09/2025: Fine Liver function tests, 08/09/2025: Normal CT head, 08/08/2025: 1. No acute territorial infarct, intracranial hemorrhage, or mass effect. 2. Age-related involutional changes. Chronic microvascular changes. 3. If clinical symptoms persist, MRI may be beneficial in further evaluation MRI head, 08/09/2025: 1. No acute infarct, intracranial hemorrhage or mass effect. 2. Age-related involutional changes. vital signs Vital Sign Date Time Temp Pulse Resp B/P (MAP) Pulse Ox O2 Delivery O2 Flow Rate FiO2 08/11/25 09:41 137/65 08/11/25 09:40 71 08/11/25 09:08 97.9 17 98 97.9 08/10/25 20:00 Room Air* 0 21 Total Intake and Output 08/10/25 08/10/25 08/11/25 15:00 23:00 07:00 Intake Total 400 ml 700 ml Balance 400 ml 700 ml medications Current Medications Medications Dose Ordered Sig/Patrick Route Start Time Stop Time Status Last Admin Dose Admin Aspirin 81 mg DAILY PO 08/09/25 10:00 08/11/25 09:40 81 MG Atorvastatin Calcium 20 mg HS PO 08/09/25 22:00 08/10/25 22:33 20 MG Losartan Potassium 50 mg DAILY PO 08/09/25 10:00 08/11/25 09:39 50 MG Amlodipine Besylate 5 mg DAILY PO 08/09/25 10:00 08/11/25 09:41 5 MG Sodium Chloride 1,000 ml @ 60 mls/hr [id number] IV 08/09/25 00:15 08/09/25 01:40 60 MLS/HR Acetaminophen/ Hydrocodone Bitart 1 tab Q4HP PRN PO 08/09/25 00:15 Ondansetron HCl 4 mg Q4HP PRN IV 08/09/25 00:15 Acetaminophen 650 mg Q6HP PRN PO 08/09/25 00:15 Enoxaparin Sodium 40 mg DAILY SC 08/09/25 10:00 08/11/25 09:41 40 MG Metoprolol Succinate 25 mg DAILY PO 08/10/25 10:00 08/11/25 09:40 25 MG objective General: the patient is well developed and nourished. No acute distress. MENTAL STATUS: Subjective SPEECH, LANGUAGE, HIGHER CORTICAL FUNCTION: no aphasia or dysathria. CRANIAL NERVES: Pupils are equal, round and reactive. EOMs full and conjugate. No nystagmus. Facial sensation intact in all three divisions bilaterally. Mandibular strength intact. Facial muscles symmetrical and strength intact. SENSATION: Sensation to touch and pinprick is normal. MOTOR: Normal tone in the upper and lower extremity. Normal muscle bulk. No fasciculations. Mild jaw tremor and no-no head tremor noticed, no definite tremor in the hands. Muscle strength of the major groups in the extremities is 5/5. REFLEXES: Deep tendon reflexes normal and symmetrical. No pathological reflexes. CEREBELLAR/COORDINATION: Finger to nose and heel to nieves are normal bilaterally. GAIT/STATION: deferred laboratory and microbiology Laboratory Tests 08/11/25 06:08 08/10/25 06:00 Test 08/11/25 06:08 Range/Units Serum Glucose 82 74-106 mg/dL Problem List Passing out Syncope secondary to dehydration ? Partial complex seizure Diarrhea, vomiting, nausea Dehydration Arrhythmia Essential tremors Assessment/Plan Monitoring Supportive treatment Telemetry Syncopal precautions discussed Good hydration No treatment indicated for the essential tremors Cardiology on case More recommendation per clinical course This medical document was created using an electronic medical record system with [employer] dictation system. Although this document has been carefully reviewed, there may still be some phonetic and typographical errors. These areas are purely typographical due to imperfections of the software programs, and do not reflect any compromise in the patient's medical care. Prognosis poor Plan discussed with: Patient, Other Total Time (mins): 38 RUBI HERNANDEZ MD Aug 11, 2025 10:39
[2025-08-11] MEDS ORDERED: ASPI-498 OR (11:04)
[2025-08-11] MEDS ORDERED: ATOR40TA52 PO (11:04)
[2025-08-11] MEDS ORDERED: METO-289 PO (11:04)
[2025-08-11] MEDS ORDERED: LOSA-534 PO (11:04)
[2025-08-11 11:50] VITALS: BP 137/65; PULSE 71; TEMP 36.6
--- NOTE | 2025-08-11 12:50 | DVHDSRES ---
Discharge Summary Date of Admission Resident Creating Document: BUBBA DEVINE Aug 09, 2025 at 00:02 Date of Discharge: Aug 11, 2025 Labs/Diagnostic Data: Laboratory Results Test 08/11/25 06:08 08/10/25 06:00 08/09/25 13:39 08/09/25 12:33 Sodium Level 143 mmol/L (136-145) Potassium Level 3.8 mmol/L (3.5-5.1) Chloride Level 107 mmol/L (98-107) Carbon Dioxide Level 27 mmol/L (20-31) Anion Gap 9 (5-15) Blood Urea Nitrogen 13 mg/dL (9-23) Creatinine 0.53 mg/dL (0.550-1.02) Glomerular Filtration Rate Calc 98 mL/min (>90) BUN/Creatinine Ratio 24.5 (10.0-20.0) Serum Glucose 82 mg/dL (74-106) Calcium Level 8.8 mg/dL (8.7-10.4) White Blood Count 4.6 10^3/uL (4.4-10.8) Red Blood Count 4.54 10^6/uL (4.0-5.20) Hemoglobin 13.0 g/dL (12.2-16.2) Hematocrit 38.7 % (36.0-46.0) Mean Corpuscular Volume 85.2 fL (80.0-100.0) Mean Corpuscular Hemoglobin 28.6 pg (28.0-32.0) Mean Corpuscular Hemoglobin Concent 33.6 g/dL (32.0-36.0) Red Cell Distribution Width 14.2 % (11.8-14.3) Platelet Count 207 10^3/uL (140-450) Mean Platelet Volume 8.9 fL (6.9-10.8) Neutrophils (%) (Auto) 65.8 % (37.0-80.0) Lymphocytes (%) (Auto) 23.4 % (10.0-50.0) Monocytes (%) (Auto) 7.0 % (0.0-12.0) Eosinophils (%) (Auto) 3.1 % (0.0-7.0) Basophils (%) (Auto) 0.7 % (0.0-2.0) Neutrophils # (Auto) 3.0 10 ^3/uL (1.6-8.6) Lymphocytes # (Auto) 1.1 10 ^3/uL (0.4-5.4) Monocytes # (Auto) 0.3 10 ^3/uL (0-1.3) Eosinophils # (Auto) 0.1 10 ^3/uL (0-0.8) Basophils # (Auto) 0 10 ^3/uL (0-0.2) Nucleated Red Blood Cells 0.1 % Total Bilirubin 0.7 mg/dL (0.2-1.0) Aspartate Amino Transferase (AST) 15 U/L (13-40) Alanine Aminotransferase (ALT) 9 U/L (7-40) Alkaline Phosphatase 91 U/L (46-116) Total Protein 6.3 g/dL (5.7-8.2) Albumin 3.7 g/dL (3.2-4.8) Prothrombin Time 12.0 sec (9.3-11.8) Prothrombin Time INR 1.15 (0.9-1.15) Activated Partial Thromboplast Time 31.1 SEC (24.5-34.5) Urine Color Dark yellow (Yellow) Urine Clarity Turbid (Clear) Urine pH 5.5 (5.0-9.0) Urine Specific [place] 1.021 (1.001-1.035) Urine Protein 1+ (Negative) Urine Ketones 1+ (Negative) Urine Blood 3+ /uL (Negative) Urine Nitrite Negative (Negative) Urine Bilirubin Negative (Negative) Urine Urobilinogen Normal mg/dL (Negative) Urine Leukocyte Esterase Trace /uL (Negative) Urine RBC 596 /hpf (0 - 4) Urine Microscopic WBC 17 /HPF (0-5) Urine Squamous Epithelial Cells Few /hpf (<5) Urine Bacteria None seen /hpf (None Seen) Urine Mucus Few (None Seen) Urine Glucose Normal mg/dL (Normal) Test 08/09/25 02:26 08/08/25 21:18 08/08/25 18:23 Magnesium Level 2.1 mg/dL (1.6-2.6) Troponin I High Sensitivity 11 ng/L (</=34) Lactic Acid Level 0.9 mmol/L (0.4-2.0) B-Type Natriuretic Peptide 288.58 pg/mL (0-100) Other Laboratory Tests 08/11/25 06:08 08/10/25 06:00 Brief Hx & Hospital Course: HISTORY OF PRESENT ILLNESS: This is a 70-year-old lady with a past medical history of hypertension, dyslipidemia and unknown arrhythmia brought into the hospital due to syncope. Per patient, prior to losing consciousness she felt dizzy, had lost consciousness for couple of minutes, had no confusion upon waking up. She denies chest pain, shortness of breaths, sweating or palpitation. Home meds: Aspirin, patient was previously prescribed medicine for high blood pressure and dyslipidemia but the patient has stopped taking. She is taking her pills at home. HOSPITAL COURSE: Patient was admitted at hospital due to syncope. Head CT scan performed, showed no significant intracranial abnormalities. EKGs performed, showed bigeminal PVC. Blood pressure was high and the patient was started on losartan, metoprolol, atorvastatin and aspirin. Neurology consulted, recommended brain MRI, within normal limits and recommended monitoring. Cardiology consulted, recommended medical management on outpatient basis follow up for possible ablation. Orthostatic vital checked, within normal limits. Echocardiogram shows LVEF 50-55%, septal wall dyssynchrony, and RVSP 65-70% suggestive of possible pulmonary hypertension. On 08/11, patient was feeling better since admission. Discharge plan discussed with the patient the patient discharged home. DISCHARGE PLAN: Follow up with the PCP within 1 week of the discharge. Follow up with the Cardiology on outpatient basis. Follow up with the discharge Clinic within 1 week of the discharge. Atorvastatin 40 mg daily. Losartan 50 mg daily Metoprolol daily Aspirin 81 mg daily FINAL DIAGNOSIS: Syncope, likely cardiogenic and/or orthostatic possible History of dysrhythmia Hypertensive urgency Dyslipidemia Possible pulmonary hypertension Possible Partial complex seizure Possible gastroenteritis, infectious Dehydration Arrhythmia Essential tremors Condition at Discharge: Good Final Diagnosis/Problems List Syncope, likely cardiogenic and/or orthostatic possible History of dysrhythmia Hypertensive urgency Dyslipidemia Possible pulmonary hypertension Possible Partial complex seizure Possible gastroenteritis, infectious Dehydration Arrhythmia Essential tremors Discharge Disposition: Home Discharge Instruct/Medications Diet: Cardiac 2g Na,low cholest Activity: No Restrictions, As Tolerated Follow Up/Referral: Follow up with the PCP within 1 week of the discharge. Follow up with the Cardiology on outpatient basis. Follow up with the discharge Clinic within 1 week of the discharge. Medications: Atorvastatin 40 mg daily. Losartan 50 mg daily Metoprolol daily Aspirin 81 mg daily Scheduled Aspirin (Aspir-Low), 81 MG PO DAILY, (Reported) Aspirin (Aspirin 81), 81 MG OR DAILY Atorvastatin Calcium (Atorvastatin Calcium), 40 MG PO DAILY Losartan Potassium (Losartan Potassium), 50 MG PO DAILY Metoprolol Succinate (Metoprolol Succinate Er), 50 MG PO DAILY Discharge Statement: "Patient was advised to return to the ER or call 911 if any headaches, dizziness, shortness of breath, chest pain, abdominal pain, bleeding, fevers, or worsening of medical condition. Patient was counseled about treatment plan, medications, possible side effects, patientverbalized understanding. All questions were answered to the best of my ability. This discharge took greater then 30 minutes in planning, reviewing documentation, counseling the patient, and discussing with other team members." ASSESSMENT ASSESSMENT Assessment Syncope Visit Coding STANDARD RES Billing Provider: LINDA DIAZ MD Date of Service if different f: Aug 11, 2025 Common Visit Codes: 87024-BLS/OBS DISCH DAY >30min BUBBA DEVINE RESDIENT Aug 11, 2025 12:49 LINDA DIAZ MD Aug 14, 2025 09:58
== END 2025-08-11 12:26 | disposition home or self-care (01) | DRG 312 ==
LOC: ER 17:45 → OVERFLOW 08-09 00:02 → TELE-EAST 08-09 04:16
PROVIDERS: ADMIT Student in an Organized Health Care Education/Training Program; ATTEND Student in an Organized Health Care Education/Training Program
DX: I95.1 Orthostatic hypotension (principal); G40.209 Localization-related (focal) (partial) symptomatic epilepsy and epileptic syndromes with complex partial seizures, not intractable, without status epilepticus; I27.20 Pulmonary hypertension, unspecified; I16.0 Hypertensive urgency; J43.9 Emphysema, unspecified; A09 Infectious gastroenteritis and colitis, unspecified; E86.0 Dehydration; I49.3 Ventricular premature depolarization; G25.0 Essential tremor; E78.5 Hyperlipidemia, unspecified; Z82.49 Family history of ischemic heart disease and other diseases of the circulatory system; I49.9 Cardiac arrhythmia, unspecified; Z96.651 Presence of right artificial knee joint; Z90.711 Acquired absence of uterus with remaining cervical stump; Z85.41 Personal history of malignant neoplasm of cervix uteri
CPT/HCPCS: 36415; 70450; 70551; 71045; 80048; 80053; 81001; 83605; 83735; 83880; 84484; 85025; 85610; 85730; 87040; 93005; 93306; 95819; 99291; G0378